=== PATIENT | female | born 1985 | race Asian ===

== ENCOUNTER 2019-03-29 11:56 | Day surgery (SDC) | payer BC ==
--- OUTSIDE RECORDS SUMMARY | 2019-03-29 12:03 | XMS REPORT ---
:1985 Author Organization [facility] Address [address] [place] [address] Dr. Cage [address] [place] [id number] Care Team Providers Name Role Phone Unavailable Unavailable Unavailable Problems This patient has no known problems. Allergies, Adverse Reactions, Alerts This patient has no known allergies or adverse reactions. Medications This patient has no known medications.
[2019-03-29] MEDS ORDERED: Ringers Lactate 1,000 ML IV ONE (12:05)
[2019-03-29 12:45] LABS: Specific Gravity 1.025 (1.005-1.030)
[2019-03-29] MEDS ORDERED: LIDOCAINE 1% MPF 2 ML AMPULE ONE (14:07)
[2019-03-29] MEDS ORDERED: propofoL 200 MG/20 ML VIAL IV ONE ×2 (14:07)
--- NOTE | 2019-03-29 14:15 | ENDO RPT ---
[address], [address] EGD PROCEDURE REPORT EXAM DATE: 03/29/2019 PATIENT NAME: Noah Enriquez MR#: [id number] BIRTHDATE: 1985 ATTENDING: Ever Posadas Dr STATUS: outpatient WAX PATTERN REPAIRER: Geni Varma RN and Brook Arcos Tech INDICATIONS: The patient is a 33 yr old Female here for an EGD due to right upper quadrant abdominal pain, mid epigastric abdominal pain, and GERD PROCEDURE PERFORMED: EGD with biopsy MEDICATIONS: Per Anesthesia. TOPICAL ANESTHETIC: none CONSENT: The patient understands the risks and benefits of the procedure and understands that these risks include, but are not limited to: sedation, allergic reaction, infection, perforation and/or bleeding. Alternative means of evaluation and treatment include, among others: physical exam, x-rays, and/or surgical intervention. The patient elects to proceed with this endoscopic procedure. DESCRIPTION OF PROCEDURE: During intra-op preparation period all mechanical medical equipment was checked for proper function. Hand hygiene and appropriate measures for infection prevention was taken. Procedure, possible complications, and alternatives including but not limited to the possibility of bleeding, perforation, tear, infection, sepsis, need for surgery, need for blood transfusion, and anesthesia related complications were explained to the patient. After the risks, benefits and alternatives of the procedure were thoroughly explained, Informed consent was verified, confirmed and timeout was successfully executed by the treatment team. The patient was placed in the left lateral position. The patient was anesthetized with topical anesthesia. Through the anesthetized oropharyngeal area, the scope was passed without any difficulty. The EG-[id number] ([id number]) endoscope was introduced through the mouth and advanced to the third portion of the duodenum. Retroflexed views revealed a small hiatal hernia. The gastroscope was then slowly withdrawn and removed. A small hiatal hernia was found Mild gastritis was found in the antrum. Multiple biopsies were obtained and sent to pathology. ADVERSE EVENTS: There were no complications. IMPRESSIONS: 1. Small hiatal hernia 2. Mild gastritis in the antrum, s/p biopsies RECOMMENDATIONS: 1. await biopsy results 2. acid suppression therapy REPEAT EXAM: Ever Baumgned: Ever Posadas Dr 03/29/2019 2:14 PM cc: Timoteo Curiel CPT CODES: ICD9 CODES: PATIENT NAME: Noah Enriquez MR#: [id number]
--- NOTE | 2019-03-29 14:38 | ENDO RPT ---
[address], [address] COLONOSCOPY PROCEDURE REPORT EXAM DATE: 03/29/2019 PATIENT NAME: Noah Enriquez MR #: [id number] BIRTHDATE: 1985 ATTENDING: Ever Posadas Dr STATUS: outpatient HEEL SEAT SANDER: Brook Hood and Geni Varma RN INDICATIONS: The patient is a 33 yr old Female here for a colonoscopy due to hematochezia, change in bowel habits, and constipation PROCEDURE PERFORMED: Colonoscopy MEDICATIONS: Per Anesthesia. ESTIMATED BLOOD LOSS: None CONSENT: The patient understands the risks and benefits of the procedure and understands that these risks include, but are not limited to: sedation, allergic reaction, infection, perforation and/or bleeding. Alternative means of evaluation and treatment include, among others: physical exam, x-rays, and/or surgical intervention. The patient elects to proceed with this endoscopic procedure. DESCRIPTION OF PROCEDURE: During intra-op preparation period all mechanical medical equipment was checked for proper function. Hand hygiene and appropriate measures for infection prevention was taken. Procedure, possible complications, alternatives including, but not limited to possibility of bleeding, perforation, tear, infection, sepsis, need for surgery, need for blood transfusion, were explained to the patient. After the risks, benefits and alternatives of the procedure were thoroughly explained, Informed consent was verified, confirmed and timeout was successfully executed by the treatment team. The patient was placed in the left lateral position. A digital rectal exam was performed and revealed no abnormalities of the rectum. After appropriate level of anesthesia, the scope was passed. The EC-[id number] ([id number]) endoscope was introduced through the anus and advanced to the terminal ileum which was intubated for a short distance. The quality of the prep was good. The instrument was then slowly withdrawn as the colon was fully examined. Scope withdrawal time was 7 minutes. COLON FINDINGS: Small internal hemorrhoids were found. Retroflexed views revealed small hemorrhoids. The scope was then completely withdrawn from the patient and the procedure terminated. ADVERSE EVENTS: There were no complications. IMPRESSIONS: 1. Small internal hemorrhoids 2. Intubation to terminal ileum RECOMMENDATIONS: 1. hemorrhoidal hygiene 2. fiber rich diet RECALL: for Colonoscopy at 50 [address] eSigned: Ever Posadas Dr 03/29/2019 2:37 PM cc: Timoteo Curile CPT CODES: ICD9 CODES: PATIENT NAME: Noah Enriquez MR#: [id number]
[2019-03-29 15:10] VITALS: TEMP 97; O2SAT 100
[2019-03-29 15:11] VITALS: BP 106/69
== END 2019-03-29 15:05 | disposition home or self-care (01) ==
LOC: OR 11:56
PROVIDERS: ATTEND Internal Medicine Gastroenterology
PROC: 0DJD8ZZ Inspection of Lower Intestinal Tract, Via Natural or Artificial Opening Endoscopic (ICD-10-PCS; principal; 2019-03-29 13:00)
PROC: 0DB68ZX Excision of Stomach, Via Natural or Artificial Opening Endoscopic, Diagnostic (ICD-10-PCS; 2019-03-29 13:00)
DX: K29.50 Unspecified chronic gastritis without bleeding (principal); K21.9 Gastro-esophageal reflux disease without esophagitis; K44.9 Diaphragmatic hernia without obstruction or gangrene; K64.8 Other hemorrhoids; Z87.11 Personal history of peptic ulcer disease; Z88.6 Allergy status to analgesic agent; Z82.49 Family history of ischemic heart disease and other diseases of the circulatory system
CPT/HCPCS: 36415; 88312; 84703; 81025; 88305; 45378; 43239; J2704 ×2; J2001; J7120